=== PATIENT | female | born 1935 | race Caucasian/White ===

== ENCOUNTER 2016-05-26 13:34 | Emergency (ER) | payer MEDICAID, MEDICARE ==
[2016-05-26] MEDS ORDERED: hydrALAZINE HCL 20 MG/ML VIAL IV ONE (13:57)
[2016-05-26] MEDS ORDERED: hydrALAZINE HCL 20 MG/ML VIAL ONE (13:59)
[2016-05-26 14:00] LABS: Hematocrit 41.8 % (37.0-47.0); Hemoglobin 13.4 gm/dL (12.5-16.0); Mean Cell Volume 96.5 fl (78-100); Mean Corpuscular Hemoglobin 30.9 pg (27-31); Mean Corpuscular Hgb Conc 32.1 g/dl (32-36); Neutrophil # 5.3 K/mm3 (1.3-6.0); Platelet Count 155 K/mm3 (150-450); Red Blood Count 4.33 M/mm3 (4.2-5.4); White Blood Count 7.5 K/mm3 (4.0-10.5)
--- NOTE | 2016-05-26 14:10 | ERNOTE ---
Medical Problem HPI - General Chief Complaint: General Assessment Time Seen by Provider: 05/26/16 13:40 Exam Limitations: no limitations - Immun/Allergies/Home Medications Immunizations: IMMUNIZATION HX Immunizations Up to Date Yes History of Influenza Vaccine Yes Hx Pneumococcal Vaccination Yes Allergies/Adverse Reactions: Allergies No Known Allergies Allergy (Unverified 05/26/16 13:37) Home Medications: HOME MEDICATIONS Amlodipine Besylate [Norvasc] 2.5 mg PO BID 05/26/16 [Last Taken Unknown] Atorvastatin Calcium [Lipitor] 10 mg PO HS 05/26/16 [Last Taken Unknown] Cholecalciferol [Vitamin D] 2,000 unit PO DAILY 05/26/16 [Last Taken Unknown] Lisinopril [Zestril] 10 mg PO BID 05/26/16 [Last Taken Unknown] - History of Present History Narrative: Patient was seen in clinic by Dr. Idalia saul and she ordered a noncontrast CT of the chest. This CT of the chest revealed a possible false lumen present in the abdominal aorta, so the patient was sent in for further noncontrast CT of the abdomen and pelvis as well. Patient has been having episodic abdominal pain however at this juncture has no complaint of any kind. Timing: resolved prior to arrival Review of Systems - Review of Systems Constitutional: Present: no symptoms reported EYE: Present: no symptoms reported ENT: Present: no symptoms reported Respiratory: Present: no symptoms reported Cardiology: Present: no symptoms reported Gastrointestinal/Abdominal: Present: no symptoms reported Genitourinary: Present: no symptoms reported Musculoskeletal: Present: no symptoms reported Skin: Present: no symptoms reported Neurological: Present: no symptoms reported Endocrine: Present: no symptoms reported Hematologic/Lymphatic: Present: no symptoms reported Psych: Present: no symptoms reported - Patient's Past Medical History Patient History - Medical: History Unknown Patient History - Cardiac/Respiratory: Hypertension Patient History - Cancer: History Unknown LMP (females 10-50): Menopausal - Social History Living Situations: home Abuse History: No History of abuse Psych History: No pertinent hx Smoking Status: Current every day smoker Have you smoked in the past 12 months: Yes Patient requests Smoking Cessation Consult: No Initiate information on Smoking Cessation: No Alcohol Use: none Drug Use: none - Immunizations Immunizations Up to Date: Yes Hx Pneumococcal Vaccination: Yes History of Influenza Vaccine: Yes Physical Exam - Physical Exam General Appearance: Present: wd/wn, alert, no apparent distress Eye Exam: Normal inspection: bilateral, PERRL: bilateral Ears, Nose, Throat: Present: normal ENT inspection, H, normal pharynx Neck: Present: normal inspection, nontender Respiratory: Present: no respiratory distress, normal breath sounds, no accessory muscle use, chest nontender, lungs clear Cardiovascular/Chest: Present: regular rate, rhythm, no murmur, normal peripheral pulses Gastrointestinal/Abdominal: Present: normal bowel sounds, nontender, nondistended, soft, no organomegaly Rectal Exam: Present: deferred Back Exam: Present: normal inspection, normal range of motion Extremity Exam: Present: normal inspection, non-tender, no edema, normal range of motion Neurological Exam: Present: alert, oriented, normal mood/affect Skin Exam: Present: normal color, warm/dry Lymphatic Exam: Present: no adenopathy ED Progress - Results and Orders Patient's Lab Results:: I have reviewed the patient's lab results. - Vital Signs Patient's Vital Signs:: I have reviewed the patient's vital signs. Vital Signs: Vital Signs 05/26/16 05/26/16 05/26/16 13:37 14:01 14:02 Temperature 36.8 C 36.8 C Pulse Rate 85 83 83 Respiratory 17 17 Rate Blood Pressure 198/110 197/99 197/99 O2 Sat by Pulse 100 100 Oximetry 05/26/16 14:06 Temperature Pulse Rate 80 Respiratory 16 Rate Blood Pressure 196/81 O2 Sat by Pulse 96 Oximetry - CT/Ultrasound CT/Ultrasound Narrative: CT results reviewed - Progress/Reassessment Chief Complaint: General Assessment Progress Note-Subjective: 05/26/16 15:46 Pt appears to have an AAA that has some subtle appearances of a rupture. I discussed the case with Dr. Azevedo, vascular surgeon and Dr. Hilton the critical care physician at the [facility] and they agree to accept care for the patient. Given the presentation pt does not need to go by air as the aneurysm was found incidentally on a routine Chest CT and the patient is symptom free. Plan - Plan Plan: We do not have any definitive evidence of patient having an abdominal aortic aneurysm rupture at this juncture. Patient does not have any other typical clinical presentation for an aneurysmal rupture. Patient is symptom-free with no pain at this time. It is unclear how long the patient's blood pressure has been uncontrolled, however this could certainly be contributing to her rapidly deteriorating renal function. Patient's initial blood pressure in the emergency department was 196/111 with an MAP of 139, she was given 10 mg of hydralazine which dropped her blood pressure down to 144/71 with an MAP of 95. While she was in the emergency department her blood pressure started to creep back sore starting an esmolol drip on her. Pt has been accepted for care at the [facility] vascular surgery service and they will determine the next appropriate course of care. Departure - Departure Clinical Impression: AAA (abdominal aortic aneurysm) Qualifiers: Presence of rupture: without rupture Qualified Code(s): I71.4 - Abdominal aortic aneurysm, without rupture Disposition: [facility] Condition: Critical Referrals: Jens Fisher MD [Primary Care Provider] - - Critical Care Total Time (mins): 45 Critical Care: Please see the detailed note under the plan. Numerous interventions were undertaken to control the poorly controlled BP.
[2016-05-26 14:21] LABS: Albumin * 3.1 gm/dl (3.4-5.0); Anion Gap 11.8 mmol/L (6.8-13.8); BUN/Creatinine Ratio 9.9 (9.0-21.6); Bilirubin, Total 0.4 mg/dL (0.0-1.1); Calcium * 8.6 mg/dL (7.9-10.9); Magnesium 1.8 mg/dL (1.2-2.8); Potassium 3.8 mmol/L (3.4-4.6); Total Protein 6.5 gm/dL (6.2-8.2)
[2016-05-26 15:38] LABS: Prothrombin Time (Patient) 10.1 Seconds (9.4-11.4)
[2016-05-26] MEDS ORDERED: NORMAL SALINE IV PRN (15:38)
[2016-05-26] MEDS ORDERED: ESMOLOL HCL IV PRN (15:38)
[2016-05-26 15:39] LABS: INR 0.97 INR (0.90-1.10); Partial Thrombolplastin Time 29.6 Seconds (24-32)
[2016-05-26] MEDS ORDERED: LORazepam 2 MG/ML DISP.SYRIN IV ONE (16:14)
[2016-05-26] MEDS ORDERED: LORazepam 2 MG/ML DISP.SYRIN ONE (16:15)
[2016-05-26 16:36] VITALS: BP 176/86
== END 2016-05-26 16:31 | disposition short-term general hospital (02) ==
LOC: ER 13:34
DX: I71.4 Abdominal aortic aneurysm, without rupture (principal); R93.8 Abnormal findings on diagnostic imaging of other specified body structures; R63.4 Abnormal weight loss; Z72.0 Tobacco use; I10 Essential (primary) hypertension